=== PATIENT | female | born 2000 | race Caucasian/White ===

== ENCOUNTER → 2023-09-08 | Outpatient (CLI) | payer OTHER ==
[~2023-09-08] MED LIST: ACET500 PO; ASPIR 8181 M1 PO; BASAGLAR K100 UNIT/1 SC; FAMO20; FERSU300 PO; HUMALOG JU100 UNIT/2 SQ; IBUP800 PO; METF500 PO
[2023-09-08 11:14] LABS: Source, Urine Clean Catch
[2023-09-08 13:28] LABS: Appearance, Urine Turbid (Clear); Bilirubin, Urine Neg (Neg); Blood, Urine 2+ (Neg); Color, Urine Yellow (P-Yellow); Glucose Qualitative, Urine 1+ (Neg); Ketones, Urine 1+ (Neg); Leukocyte Esterase, Urine 3+ (Neg); Nitrite, Urine Neg (Neg); Protein, Urine 2+ (Neg); Specific Gravity, Urine 1.025 (1.003-1.022); Urobilinogen, Urine NORM (Normal)
[2023-09-08 14:12] LABS: Protein, Urine Random 47.6 mg/dL (0.0-11.9); Protein/Creat Ratio, Ur Random 0.2
[2023-09-08 14:44] LABS: Amorphous Heavy (0-Heavy); Bacteria Many /hpf; Squamous Epithelial Cells Many /hpf (Few); White Blood Cells, Urine 50-100 /hpf (0-5)
[2023-09-08 14:45] LABS: Red Blood Cells, Urine 0-2 /hpf (0-2)
== END | disposition home or self-care (01) ==
LOC: LAB SHORT 11:12 → LAB 11:12
PROVIDERS: Obstetrics & Gynecology
DX: R80.9 Proteinuria, unspecified (principal); R82.79 Other abnormal findings on microbiological examination of urine
CPT/HCPCS: 81001; 82570; 84156; 87086

== ENCOUNTER → 2023-10-05 | Outpatient (CLI) | payer OTHER | END | disposition home or self-care (01) | LOC: LAB 11:35 → LAB SHORT 11:35 | DX: O09.93 Supervision of high risk pregnancy, unspecified, third trimester (principal) | CPT/HCPCS: 87081; 87150 ==

== ENCOUNTER 2023-10-08 14:05 | Inpatient (IN) | payer OTHER ==
[~2023-10-08] VITALS: Ht 160 cm; Wt 120.0 kg
[2023-10-08] VITALS (27 sets, daily range): BP systolic 119–169; BP diastolic 67–107
[2023-10-08] MEDS ORDERED: Methylergonovine Maleate 0.2MG / ML 1ML Amp IM SCH (14:40)
[2023-10-08] MEDS ORDERED: Bupivacaine 0.5% HCl 5 MG/ML 30MLVIAL XX SCH (14:40)
[2023-10-08] MEDS ORDERED: Bupivacaine HCl 2.5 MG/ML 10ML P/F Injection XX SCH (14:40)
[2023-10-08] MEDS ORDERED: Oxytocin 10 Unit / ML Vial IM SCH (14:40)
[2023-10-08] MEDS ORDERED: Lidocaine HCl 1% 30 ML SDV XX SCH (14:40)
[2023-10-08] MEDS ORDERED: Misoprostol 200 MCG Tab PR SCH (14:40)
[2023-10-08] MEDS ORDERED: Lactated Ringer's 1,000 ML IV PRN (14:40)
[2023-10-08] MEDS ORDERED: Castor Oil 59.146 ML BTL TOP SCH (14:40)
[2023-10-08] MEDS ORDERED: LR Oxytocin 20 Units 1,000 ML IV SCH ×2 (14:40→18:45)
[2023-10-08] MEDS ORDERED: FentaNYL 2mcg/ml-Bup 0.1% Epd 250 ML EPI PRN (14:45)
[2023-10-08] MEDS ORDERED: Lactated Ringer's 1,000 ML IV SCH ×3 (14:45→18:45)
[2023-10-08] MEDS ORDERED: ePHEDrine Sulfate 50 MG/ML 1ML Injection XX PRN (14:45)
[2023-10-08] MEDS ORDERED: Lactated Ringer's 1,000 ML IV ONE (14:47)
[2023-10-08] MEDS ORDERED: LR Oxytocin 20 Units 1,000 ML IV ONE (14:47)
[2023-10-08 14:54] LABS: BASOPHILS ABSOLUTE AUTO 0.02 K/mm3 (0.00-0.23); BASOPHILS PERCENT AUTO 0 % (0-2); EOSINOPHILS ABSOLUTE AUTO 0.07 K/mm3 (0.00-0.68); EOSINOPHILS PERCENT AUTO 1 % (0-6); Hematocrit 40.8 % (33.0-51.0); Hemoglobin 13.1 g/dL (11.5-16.0); IMMATURE GRAN ABSOLUTE AUTO 0.03 K/mm3 (0.00-0.10); IMMATURE GRAN PERCENT AUTO 0 % (0-1); LYMPHOCYTES ABSOLUTE AUTO 1.61 K/mm3 (0.84-5.20); LYMPHOCYTES PERCENT AUTO 19 % (21-46); MONOCYTES ABSOLUTE AUTO 0.71 K/mm3 (0.16-1.47); MONOCYTES PERCENT AUTO 8 % (4-13); Mean Corpuscular HGB 28.8 pg (26.0-34.0); Mean Corpuscular HGB Conc 32.1 g/dL (31.5-36.5); Mean Corpuscular Volume 90 fL (80-100); Mean Platelet Volume 11.7 fL (9.1-12.4); NEUTROPHILS ABSOLUTE AUTO 6.21 K/mm3 (1.96-9.15); NEUTROPHILS PERCENT AUTO 72 % (41-73); Platelet Count 199 K/mm3 (150-400); RDW Coefficient Variation 14.4 % (11.7-14.2); RDW Standard Deviation 46.7 fL (35.1-46.3); Red Blood Cell Count 4.55 M/mm3 (3.80-5.20); White Blood Cell Count 8.65 K/mm3 (4.00-11.30)
[2023-10-08] MEDS ORDERED: ASPIR 8181 M1 PO (15:03)
[2023-10-08] MEDS ORDERED: METF500 PO (15:03)
[2023-10-08] MEDS ORDERED: BASAGLAR K100 UNIT/1 SC ×2 (15:04→15:05)
[2023-10-08] MEDS ORDERED: FERSU300 PO (15:04)
[2023-10-08] MEDS ORDERED: FAMO20 (15:04)
[2023-10-08] MEDS ORDERED: HUMALOG JU100 UNIT/2 SQ (15:05)
[2023-10-08 15:13] LABS: Albumin, Blood 2.5 g/dL (3.4-5.0); Albumin/Globulin Ratio 0.5 (0.8-1.8); Bilirubin, Total 0.2 mg/dL (0.1-1.0); Bun/Creatinine Ratio 18.1 (12.0-20.0); Calcium, Blood 9.5 mg/dL (8.5-10.1); Creatinine, Blood 0.66 mg/dL (0.40-1.00); Globulin, Blood 4.6 g/dL (2.2-4.0); Potassium, Blood 3.9 mmol/L (3.5-5.5); Total Protein, Blood 7.1 g/dL (6.4-8.2)
[2023-10-08] MEDS ORDERED: FentaNYL Citrate 50 MCG/ML 2 ML Injection ONE ×2 (15:22→15:23)
[2023-10-08] MEDS ORDERED: Methylergonovine Maleate 0.2MG / ML 1ML Amp IM PRN (18:45)
[2023-10-08] MEDS ORDERED: Carboprost Tromethamine 250 MCG/ML 1ML Amp IM PRN (18:45)
[2023-10-08] MEDS ORDERED: Misoprostol 200 MCG Tab PR PRN (18:45)
[2023-10-08] MEDS ORDERED: Docusate Sodium 100 MG Cap PO PRN (18:50)
[2023-10-08] MEDS ORDERED: Witch Hazel/Glycerin PADS TOP PRN (18:50)
[2023-10-08] MEDS ORDERED: Ibuprofen 400 MG Tab PO PRN (18:50)
[2023-10-08] MEDS ORDERED: Acetaminophen 500 MG Tab PO PRN (18:50)
[2023-10-08] MEDS ORDERED: Benzocaine Topical Anesthetic Spray 60GM TOP PRN (18:50)
[2023-10-08] MEDS ORDERED: Ketorolac Tromethamine 30mg Vial IV PRN (19:00)
[2023-10-08] MEDS ORDERED: Ketorolac Tromethamine 30mg Vial IV ONE (19:00)
[2023-10-08] MEDS ORDERED: Insulin Glargine-Yfgn 100 Unit/mL 3 ML SYR SC SCH (21:00)
[2023-10-08] MEDS ORDERED: Insulin Human Lispro 100 Units/ML 3ML Syringe SC SCH (21:00)
[2023-10-09 03:00] VITALS: BP 133/81
[2023-10-09 07:26] VITALS: BP 123/66
[2023-10-09] MEDS ORDERED: MetFORMIN HCl 500 mg PO SCH (08:00)
[2023-10-09] MEDS ORDERED: Prenatal Vit/FE Fumarate/FA 1 Tab PO SCH (09:00)
[2023-10-09 10:20] VITALS: BP 138/88
[2023-10-09 11:18] VITALS: BP 147/80
[2023-10-09] MEDS ORDERED: IBUP800 PO (13:49)
[2023-10-09] MEDS ORDERED: ACET500 PO (13:49)
--- NOTE | 2023-10-09 14:27 | NUR ---
PLAN IS TO PUT PT TO BOARDER STATUS TONIGHT. DR FORD CALLED PT STATES SHE DOESNT HAVE ANY INSULIN AT HOME EVEN THOUGH SHE WAS SUPPOSE TO BE TAKING IT HER ENTIRE . DR FORD WILL CALL IN HER INSULIN GLARGINE 10 UNITS AT BEDTIME. HER OFFICE WILL CALL AND SCHEDULE AN ENDOCRINE APPOINTMENT FOR THE NEXT WEEK OR 2. ENCOURAGED PATIENT TO CONTINUE TO CHECK HER CBG AND CALL DR FREEMAN IF SHE IS GETTING ELEVATED NUMBERS TO READJUST HER INSULIN. SHE DID PUMP FOR THE FIRST TIME TODAY AND ENCOURAGE IF SHE IS WANTING TO BF SHE NEEDS TO BE PUMPING EVERY 3 HOURS. OTHER CHILD IS IN ROOM AT THIS TIME WITH HER MOTHER. MILK AND FOOD GIVEN TO FEED HER.
--- NOTE | 2023-10-09 15:54 | NUR ---
DISCHARGE DISCHARGE MOTHER TO BOARDER STATUS. BABY SHOULD BE COMING OUT OF NURSERY SHORTLY. MOTHER VERBALIZES UNDERSTANING OF DC INSTRUCTIONS AND FOLLOW UP APPOINTMENTS. PT STATES SHE WILL GO GET HER NIGHT INSULIN TO TAKE TONIGHT. PT DOES HAVE HER MONIOTOR FOR HER DEXCOM IN HER CAR AND WILL GO GET THAT TO START CHECKING OWN CBG. LUIZ ESCALONA. VSS. NO QUESTIONS OR CONCERNS.
[2023-10-09 16:06] VITALS: BP 138/89
== END 2023-10-09 16:10 | disposition home or self-care (01) | DRG 806 ==
LOC: BC 14:05 → OBS 14:05 → BC 14:36
PROVIDERS: ADMIT Obstetrics & Gynecology
PROC: 10E0XZZ Delivery of Products of Conception, External Approach (ICD-10-PCS; principal; 2023-10-08)
PROC: 3E0R3BZ Introduction of Anesthetic Agent into Spinal Canal, Percutaneous Approach (ICD-10-PCS; 2023-10-08)
PROC: 00HU33Z Insertion of Infusion Device into Spinal Canal, Percutaneous Approach (ICD-10-PCS; 2023-10-08)
DX: O99.214 Obesity complicating childbirth (principal); Z59.00 Homelessness unspecified; Z37.0 Single live birth; E10.65 Type 1 diabetes mellitus with hyperglycemia; O24.02 Pre-existing type 1 diabetes mellitus, in childbirth; Z3A.37 37 weeks gestation of pregnancy; Z79.82 Long term (current) use of aspirin; O99.02 Anemia complicating childbirth; Z79.4 Long term (current) use of insulin; Z79.84 Long term (current) use of oral hypoglycemic drugs; O71.82 Other specified trauma to perineum and vulva; Z79.899 Other long term (current) drug therapy
CPT/HCPCS: 36415; 51702; 59025; 80053; 82947; 85025; 86850; 86900; 86901; 99214; A9270; J1815; J1885; J2590; J7120

== ENCOUNTER → 2024-11-10 | Outpatient (CLI) | payer OTHER ==
[2024-11-10 15:32] LABS: Source, Urine Clean Catch
[2024-11-10 17:08] LABS: Bacteria Few /hpf; Red Blood Cells, Urine 0-2 /hpf (0-2); Squamous Epithelial Cells Few /hpf (Few)
[2024-11-10 17:10] LABS: U Amphetamine Screen Not Detected; U Barbituate Screen Not Detected; U Benzodiazapine Screen Not Detected; U Buprenorphine Screen Not Detected; U Cannabinoids Screen Not Detected; U Cocaine Screen Not Detected; U Methadone Screen Not Detected; U Methamphetamine Screen Not Detected; U Opiates Screen Not Detected; U Oxycodone Screen Not Detected; U Phencyclidine Screen Not Detected
[2024-11-10 19:59] LABS: Creatinine, Urine Random 86.9 mg/dL (27.00-270.00); Protein, Urine Random 9.2 mg/dL (0.0-11.9); Protein/Creat Ratio, Ur Random 0.1
== END ==
LOC: LAB SHORT 11:20 → LAB 11:20
PROVIDERS: Obstetrics & Gynecology
DX: O24.012 Pre-existing type 1 diabetes mellitus, in pregnancy, second trimester (principal); Z3A.00 Weeks of gestation of pregnancy not specified
CPT/HCPCS: 81015; 82570; 84156; 87086

== ENCOUNTER → 2025-02-14 | Outpatient (CLI) | payer OTHER ==
[2025-02-15 13:24] LABS: Bacterial Vaginosis PCR Positive (NEGATIVE); Candida Group, PCR DETECTED (NOT DETECT); Candida glabrata-krusei, PCR NOT DETECTED (NOT DETECT)
== END ==
LOC: LAB 17:11 → LAB SHORT 17:11
PROVIDERS: Obstetrics & Gynecology
DX: N76.0 Acute vaginitis (principal)
CPT/HCPCS: 81515

== ENCOUNTER → 2025-04-09 | Outpatient (CLI) | payer OTHER ==
[2025-04-09 18:37] LABS: Candida glabrata-krusei, PCR NOT DETECTED (NOT DETECT)
[2025-04-09 19:32] LABS: Bacterial Vaginosis PCR Positive (NEGATIVE); Candida Group, PCR DETECTED (NOT DETECT)
== END ==
LOC: LAB 14:40 → LAB SHORT 14:40
DX: N89.8 Other specified noninflammatory disorders of vagina (principal); R82.81 Pyuria
CPT/HCPCS: 81515; 87086; 87147

== ENCOUNTER → 2025-04-19 | Outpatient (CLI) | payer OTHER | LOC: LAB SHORT 17:11 → LAB 17:11 | DX: O24.013 Pre-existing type 1 diabetes mellitus, in pregnancy, third trimester (principal) | CPT/HCPCS: 87081; 87150 ==

== ENCOUNTER 2025-04-26 19:34 | Inpatient (IN) | payer OTHER ==
[~2025-04-26] VITALS: Ht 162.6 cm; Wt 118.2 kg
[2025-04-26] MEDS ORDERED: Carboprost Tromethamine 250 MCG/ML 1ML Amp IM PRN (19:40)
[2025-04-26] MEDS ORDERED: FentaNYL 2mcg/ml-Bup 0.1% Epd 250 ML EPI PRN (19:40)
[2025-04-26] MEDS ORDERED: OXYTOCIN/RINGER'S LACTATE 500 ML IV PRN (19:40)
[2025-04-26] MEDS ORDERED: Oxytocin 10 Unit / ML Vial IM PRN (19:40)
[2025-04-26] MEDS ORDERED: Tranexamic Acid 100 ML IV SCH (19:40)
[2025-04-26] MEDS ORDERED: Ondansetron HCl 2 MG / ML 2ML Vial IV PRN (19:40)
[2025-04-26] MEDS ORDERED: ePHEDrine Sulfate 50 MG/ML 1ML Injection XX PRN (19:40)
[2025-04-26] MEDS ORDERED: Methylergonovine Maleate 0.2MG / ML 1ML Amp IM PRN (19:40)
[2025-04-26] MEDS ORDERED: OXYTOCIN/RINGER'S LACTATE 500 ML IV SCH (19:45)
[2025-04-26] MEDS ORDERED: Insulin Human Regular 100 UNIT in NS 100 ML IV SCH (20:35)
[2025-04-26] MEDS ORDERED: FAMO20 PO (20:41)
[2025-04-26] MEDS ORDERED: INSULIN LI100 UNIT/5 SC (20:43)
[2025-04-26] MEDS ORDERED: METF500 PO (20:43)
[2025-04-26 20:56] VITALS: BP 123/81
[2025-04-26 21:00] LABS: BASOPHILS ABSOLUTE AUTO 0.01 K/mm3 (0.00-0.23); BASOPHILS PERCENT AUTO 0 % (0-2); EOSINOPHILS ABSOLUTE AUTO 0.04 K/mm3 (0.00-0.68); EOSINOPHILS PERCENT AUTO 0 % (0-6); Hematocrit 42.0 % (33.0-51.0); Hemoglobin 13.8 g/dL (11.5-16.0); IMMATURE GRAN ABSOLUTE AUTO 0.02 K/mm3 (0.00-0.10); IMMATURE GRAN PERCENT AUTO 0 % (0-1); LYMPHOCYTES ABSOLUTE AUTO 1.57 K/mm3 (0.84-5.20); LYMPHOCYTES PERCENT AUTO 16 % (21-46); MONOCYTES ABSOLUTE AUTO 0.57 K/mm3 (0.16-1.47); MONOCYTES PERCENT AUTO 6 % (4-13); Mean Corpuscular HGB Conc 32.9 g/dL (31.5-36.5); Mean Corpuscular Volume 88 fL (80-100); NEUTROPHILS ABSOLUTE AUTO 7.60 K/mm3 (1.96-9.15); NEUTROPHILS PERCENT AUTO 78 % (41-73); NRBC ABSOLUTE 0.00 K/mm3 (0.00-0.02); NRBC Auto 0.0 /100 WBC (0.0-0.2); Platelet Count 231 K/mm3 (150-400); RDW Coefficient Variation 13.2 % (11.7-14.2); RDW Standard Deviation 43.0 fL (35.1-46.3)
[2025-04-26] MEDS ORDERED: NS 1,000 ML IV SCH (22:10)
[2025-04-26] MEDS ORDERED: NS 1,000 ML IV ONE (22:14)
[2025-04-27] VITALS (40 sets, daily range): BP systolic 90–146; BP diastolic 50–98
[2025-04-27] MEDS ORDERED: Penicillin G Potassium 5,000,000 UNITS in NS 250 ML IV ONE ×2 (07:30→08:45)
[2025-04-27] MEDS ORDERED: Ondansetron HCl 2 MG / ML 2ML Vial IV PRN (10:30)
[2025-04-27] MEDS ORDERED: ePHEDrine Sulfate 50 MG/ML 1ML Injection IV PRN (10:35)
[2025-04-27] MEDS ORDERED: DiphenhydrAMINE HCl 50 MG/ML 1ML Vial IV PRN (10:35)
[2025-04-27] MEDS ORDERED: Metoclopramide HCl 5MG / ML 2ML Vial IV PRN (10:35)
[2025-04-27] MEDS ORDERED: Naloxone HCl 0.4MG / ML 1ML Vial IV PRN (10:35)
[2025-04-27] MEDS ORDERED: Penicillin G Potassium 2,500,000 UNITS in Dextrose 5% 100 ML IV SCH ×2 (11:30→13:00)
[2025-04-27] MEDS ORDERED: Ketorolac Tromethamine 30mg Vial IV PRN (17:35)
[2025-04-27] MEDS ORDERED: Rho(D) Immune Globulin 300 MCG / SYR IM SCH (17:35)
[2025-04-27] MEDS ORDERED: Methylergonovine Maleate 0.2MG / ML 1ML Amp IM PRN (17:35)
[2025-04-27] MEDS ORDERED: Witch Hazel/Glycerin PADS TOP PRN (17:40)
[2025-04-27] MEDS ORDERED: FLU VACC TS2025-26(6MOS UP)/PF 45 MCG/0.5 ML SYRINGE IM SCH (17:40)
[2025-04-27] MEDS ORDERED: Benzocaine Topical Anesthetic Spray 60GM TOP PRN (17:40)
[2025-04-27] MEDS ORDERED: OXYTOCIN/RINGER'S LACTATE 500 ML IV SCH (17:45)
[2025-04-27] MEDS ORDERED: Insulin Glargine 100 Unit/ML 3 ML SYR SC SCH (21:00)
[2025-04-27] MEDS ORDERED: Insulin Human Lispro 100 Units/ML 3ML Syringe SC SCH (21:00)
[2025-04-27] MEDS ORDERED: Insulin Glargine-Yfgn 100 Unit/mL 3 ML SYR SC SCH (21:00)
[2025-04-28 04:56] VITALS: BP 128/73
[2025-04-28 07:34] VITALS: BP 125/85
[2025-04-28] MEDS ORDERED: Prenatal Vit/FE Fumarate/FA 1 Tab PO SCH (09:00)
[2025-04-28 11:57] VITALS: BP 119/79
[2025-04-28 16:41] VITALS: BP 139/64
== END 2025-04-28 17:03 | disposition home or self-care (01) | DRG 807 ==
LOC: OBS 19:34 → BC 19:35 → OBS 19:56 → BC 20:30
PROVIDERS: ADMIT Obstetrics & Gynecology
PROC: 10E0XZZ Delivery of Products of Conception, External Approach (ICD-10-PCS; principal; 2025-04-27)
PROC: 10907ZC Drainage of Amniotic Fluid, Therapeutic from Products of Conception, Via Natural or Artificial Opening (ICD-10-PCS; 2025-04-27)
PROC: 4A1HXCZ Monitoring of Products of Conception, Cardiac Rate, External Approach (ICD-10-PCS; 2025-04-27)
PROC: 3E033VJ Introduction of Other Hormone into Peripheral Vein, Percutaneous Approach (ICD-10-PCS; 2025-04-27)
PROC: 3E0P7VZ Introduction of Hormone into Female Reproductive, Via Natural or Artificial Opening (ICD-10-PCS; 2025-04-27)
PROC: 10H073Z Insertion of Monitoring Electrode into Products of Conception, Via Natural or Artificial Opening (ICD-10-PCS; 2025-04-27)
PROC: 4A1H7CZ Monitoring of Products of Conception, Cardiac Rate, Via Natural or Artificial Opening (ICD-10-PCS; 2025-04-27)
PROC: 10H07YZ Insertion of Other Device into Products of Conception, Via Natural or Artificial Opening (ICD-10-PCS; 2025-04-27)
PROC: 00HU33Z Insertion of Infusion Device into Spinal Canal, Percutaneous Approach (ICD-10-PCS; 2025-04-27)
PROC: 3E0R3BZ Introduction of Anesthetic Agent into Spinal Canal, Percutaneous Approach (ICD-10-PCS; 2025-04-27)
DX: O24.02 Pre-existing type 1 diabetes mellitus, in childbirth (principal); Z37.0 Single live birth; Z3A.37 37 weeks gestation of pregnancy; O99.214 Obesity complicating childbirth; O99.824 Streptococcus B carrier state complicating childbirth; E10.65 Type 1 diabetes mellitus with hyperglycemia; O71.82 Other specified trauma to perineum and vulva; Z96.41 Presence of insulin pump (external) (internal); Z91.040 Latex allergy status; Z79.4 Long term (current) use of insulin; Z79.84 Long term (current) use of oral hypoglycemic drugs
CPT/HCPCS: 36416; 59414; 82947; 85025; 86850; 86900; 86901; 86923; A9270; J1815; J1885; J2405; J2540; J2590; J7030; J7050; J7120